=== PATIENT | female | born 1995 | race African-American/Black ===

== ENCOUNTER 2018-12-21 18:29 | Emergency (ER) | payer MEDICAID ==
[~2018-12-21] VITALS: Ht 172.7 cm; Wt 82.0 kg
[2018-12-21] MEDS ORDERED: IBUPROFEN 600MG TABLET PO STA (21:38)
[2018-12-22 00:01] VITALS: BP 128/59
== END 2018-12-22 01:53 | disposition home or self-care (01) ==
LOC: ER 18:29
DX: M25.531 Pain in right wrist (principal); M54.2 Cervicalgia; R51 Headache; I10 Essential (primary) hypertension; V49.40XA Driver injured in collision with unspecified motor vehicles in traffic accident, initial encounter; Y93.9 Activity, unspecified; Y92.410 Unspecified street and highway as the place of occurrence of the external cause; Z98.890 Other specified postprocedural states
CPT/HCPCS: 81025; 99282